=== PATIENT | female | born 1990 | race Caucasian/White ===

== ENCOUNTER 2017-01-03 11:49 | Emergency (ER) | payer OTHER ==
[2017-01-03 13:45] LABS: Hematocrit 33 % (35-47); Mean Corpuscular HGB Conc 34 g/dl (31-36); Mean Corpuscular Hemoglobin 32 pg (27-31); Mean Corpuscular Volume 94 fL (80-97); Mean Platelet Volume 8 um3 (7.4-10.4); Red Blood Count 3.46 10^6/ul (4.0-5.4); Red Cell Distribution Width 12 % (10.5-15); White Blood Count 5.1 10^3/ul (3.5-10.8)
[2017-01-03 13:47] LABS: Urine Bilirubin Negative (Negative); Urine Glucose Negative (Negative); Urine Nitrite Negative (Negative)
[2017-01-03 13:59] LABS: Benzodiazepine Urine Screen None Detected (None Detect)
[2017-01-03 14:00] LABS: ALT 10 U/L (7-52); AST 15 U/L (13-39); Albumin 3.7 g/dL (3.2-5.2); Alkaline Phosphatase 57 U/L (34-104); Anion Gap 4 mmol/L (2-11); BUN/Creatinine Ratio 13.4 (8-20); Blood Urea Nitrogen 9 mg/dL (6-24); CO2 Carbon Dioxide 31 mmol/L (22-32); Calcium 9.3 mg/dL (8.6-10.3); Chloride 102 mmol/L (101-111); EGFR African American 136.8 (>60); EGFR Non-African American 106.4 (>60); Globulin 2.5 g/dL (2-4); Glucose 90 mg/dL (70-100); Magnesium 1.7 mg/dL (1.9-2.7); Potassium 3.7 mmol/L (3.5-5.0); Sodium 137 mmol/L (133-145); Total Protein 6.2 g/dL (6.4-8.9)
[2017-01-03 14:21] LABS: Alcohol < 10 mg/dL (<10)
[2017-01-03] MEDS ORDERED: Ibuprofen TAB* 800 MG PO ONE (14:31)
[2017-01-03] MEDS ORDERED: OXcarbazepine TAB(*) 300 MG PO ONE (17:21)
[2017-01-03 18:55] VITALS: BP 101/62
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
--- NOTE | 2017-01-04 12:07 | EEG ---
ELECTROENCEPHALOGRAPHY: DATE OF STUDY: 01/03/17 REFERRING PROVIDER: Dr. Lei Dang. LOCATION: She is in the emergency room. CLINICAL HISTORY: Episodes of possible seizures starting just today or this week including staring spells. The patient apparently is having staring spells in the emergency room. MEDICATIONS: Unknown. EEG DESCRIPTION: This 16-channel EEG is remarkable for background activity at the onset of the tracing consisting of a reasonably well-formed alpha rhythm in the posterior derivations at 8-1/2 to 9 cycles per second, which is symmetric. Moderate to high voltage beta rhythms are seen bifrontally. Muscle and movement artifacts are seen occasionally. Activation procedures are not attempted. The patient blinks and rubs her face at times, but does not have any episodes of unresponsiveness reported by the technician helper instrument. The patient does not sleep. Activation procedures are not attempted. There are no focal, lateralized, or epileptiform abnormalities. INTERPRETATION: Normal awake EEG. [id number]/[facility] #: [id number] ALEXANDER
--- NOTE | 2017-01-10 20:51 | ED ---
Marielos, DoctorEstelle, scribed for Lei Dang MD on 01/03/17 at 1323 . Neurological HPI - HPI Summary HPI Summary: 26 year old female arrived to [facility] by ambulance after experiencing multiple seizures this morning and in the waiting room at [facility]. She has no recollection of her seizures, but was told that they were "staring spells," and she was given a C-collar by the high school professional who brought her to the ED. She reportedly fell and hit her head during one seizure, and feels generally sore; however, she denies any LOC. She regularly experiences seizures 1x month, and takes Paxil and Trileptal. She has a PMHx of a chronic back problem that is no different than baseline today. She does not currently have a regular PCP, and is living at [facility]. - History of Current Complaint Chief Complaint: EDSeizure Stated Complaint: SEIZURE Time Seen by Provider: 01/03/17 12:18 Hx Obtained From: Patient Onset/Duration: Gradual Onset, Started minutes ago Timing: Intermittent Episodes Lasting: Onset Severity: Moderate Seizure Severity: Moderate Pain Intensity: 7 Pain Scale Used: 0-10 Numeric Syncope Context: Loss of Consciousness: No Seizure Character: Generalized - absence seizure Aggravating: Unknown Alleviating: Spontanious Resolution Associated Signs and Symptoms: Positive: Weakness - "generally sore", Seizure. Negative: Loss of Consciousness - Allergy/Home Medications Allergies/Adverse Reactions: Allergies Allergy/AdvReac Type Severity Reaction Status Date / Time Tramadol Allergy spasms Verified 01/03/17 13:34 PMH/Surg Hx/FS Hx/Imm Hx Musculoskeletal History: Reports: Hx Back Problems - chronic back problems Neurological History: Reports: Hx Seizures - Surgical History Surgery Procedure, Year, and Place: Dilation & Curettage Infectious Disease History: Yes Infectious Disease History: Denies: Traveled Outside the [place] in Last 30 Days - Family History Known Family History: Positive: Cardiac Disease, Diabetes, Other - Emphysema ( Mother) - Social History Lives: Nursing Home - currently at [facility] Review of Systems Negative: Fever Positive: Myalgia - general soreness of muscles, no specific location Neurological: Other - seizures, now resolved. no LOC. All Other Systems Reviewed And Are Negative: Yes Physical Exam Triage Information Reviewed: Yes Vital Signs On Initial Exam: Initial Vitals Temp Pulse Resp BP Pulse Ox 98.8 F 65 18 104/53 99 01/03/17 11:51 01/03/17 11:51 01/03/17 11:51 01/03/17 11:51 01/03/17 11:51 Vital Signs Reviewed: Yes Appearance: Positive: Well-Appearing, No Pain Distress Skin: Positive: Warm, Skin Color Reflects Adequate Perfusion, Dry Head/Face: Positive: Normal Head/Face Inspection Eyes: Positive: Normal ENT: Positive: Normal ENT inspection Neck: Positive: Supple, Nontender Respiratory/Lung Sounds: Positive: Clear to Auscultation, Breath Sounds Present Cardiovascular: Positive: RRR Abdomen Description: Positive: Nontender, Soft Bowel Sounds: Positive: Present Musculoskeletal: Positive: Normal Neurological: Positive: Normal Psychiatric: Positive: Normal, Affect/Mood Appropriate Diagnostics - Vital Signs Vital Signs Temp Pulse Resp BP Pulse Ox 01/03/17 12:00 65 14 98 01/03/17 11:59 71 97 01/03/17 11:51 98.8 F 65 18 104/53 99 - Laboratory Lab Results: Lab Results 01/03/17 Range/Units 12:18 POC Glucose (mg/dL) 105 (74-106) mg/dL Result Diagrams: 01/03/17 13:30 01/03/17 13:30 Lab Statement: Any lab studies that have been ordered have been reviewed, and results considered in the medical decision making process. - EKG 13:52 Cardiac Rate: Bradycardia - 58 bpm EKG Rhythm: Sinus Bradycardia Course/Dx - Course Course Of Treatment: 14:10 - Discussed patient with Dr. Ochoa; he will re- evaulate patient after her EEG - Diagnoses Provider Diagnoses: Seizures Discharge - Discharge Plan Condition: Stable Disposition: OTHER Discharge Disposition Comment: Pending consult with Dr. Ochoa Prescriptions: OXcarbazepine TAB(*) [Trileptal TAB(*)] 600 mg PO BID #30 tab Patient Education Materials: Recurrent Seizures in Adults (ED) Referrals: Julio Ochoa MD [Medical Doctor] - 2 Days Additional Instructions: Please follow-up with Dr. Ochoa's office. The documentation as recorded by the Doctor flores Tahera accurately reflects the service I personally performed and the decisions made by , Lei Dang MD.
--- NOTE | 2017-01-18 20:55 | ED ---
Anisha Arceo Matthew, scribed for Williams Joe MD on 01/03/17 at 1743 . Progress - Progress Note Progress Note: This patient was sign out by Dr. Dang. The patient has been having seizures. The patient was awaiting consult from Dr. Ochoa. Dr. Ochoa saw that patient. He did an EEG and read the EEG. He recommends the patient be discharged home on Trileptal 600mg BID and follow-p with his office. She is A& Ox3 and hemodynamically stable. She is ambulatory and has no other complaints. Course/Dx - Diagnoses Provider Diagnoses: Seizures The documentation as recorded by the Anisha flores Matthew accurately reflects the service I personally performed and the decisions made by Heath denny Walter, MD.
== END 2017-01-03 19:07 ==
LOC: ED 11:49
DX: R56.9 Unspecified convulsions (principal)
CPT/HCPCS: 36415; 80053; 80307; 80320; 81003; 83605; 83735; 84702; 85025; 85610; 95816; 99283; A9270-GY; G0480

== ENCOUNTER 2017-01-04 21:06 | Emergency (ER) | payer OTHER ==
[2017-01-04] MEDS ORDERED: LORazepam INJ* 2 MG/ML 1 ML VIAL IV PUSH ONE (21:09)
--- NOTE | 2017-01-04 21:39 | ED ---
Adriano Arceo SooYoung, scribed for Shade Hayes MD on 01/04/17 at 2110 . Neurological HPI - HPI Summary HPI Summary: LEVEL 5 CAVEAT: HPI LIMITED DUE TO PT CONDITION, UNRELIABLE NARRATOR A 26 y/o F SOFIYA presents to ED for sz onset 1930. Pt had two more sz with EMS on way to ED. According to EMS, pt was seen yesterday in ED for sz by Dr. Dang. Pt is in a rehab facility. They told EMS that pt has taken her medications today. - History of Current Complaint Stated Complaint: SEIZURES Hx Obtained From: EMS - Allergy/Home Medications Allergies/Adverse Reactions: Allergies Allergy/AdvReac Type Severity Reaction Status Date / Time Tramadol Allergy spasms Verified 01/03/17 13:34 PMH/Surg Hx/FS Hx/Imm Hx Previously Healthy: No - LEVEL 5 CAVEAT: PMHx/SHx/FHx LIMITED DUE TO PT CONDITION, UNRELIABLE NARRAT Neurological History: Reports: Hx Seizures - Social History Alcohol Use: does not drink now but has ETOH history Substance Use Type: Reports: Other Substance Use Comment - Amount & Last Used: pt currently in rehab Smoking Status (MU): Former Smoker Review of Systems - ROS Summary Review of Systems Summary: LEVEL 5 CAVEAT: ROS LIMITED DUE TO PT CONDITION, UNRELIABLE NARRATOR All Other Systems Reviewed And Are Negative: Yes Physical Exam Triage Information Reviewed: Yes Vital Signs On Initial Exam: Initial Vitals Temp Pulse Resp BP Pulse Ox 98.5 F 80 16 100/56 96 01/04/17 21:07 01/04/17 21:07 01/04/17 21:07 01/04/17 21:07 01/04/17 21:07 Vital Signs Reviewed: Yes Appearance: Positive: Well-Appearing, No Pain Distress Skin: Positive: Warm Head/Face: Positive: Normal Head/Face Inspection Eyes: Positive: ARCHANA ENT: Positive: Hearing grossly normal Neck: Positive: Supple Respiratory/Lung Sounds: Positive: Breath Sounds Present Cardiovascular: Positive: RRR Abdomen Description: Positive: Nontender, Soft Bowel Sounds: Positive: Present Neurological: Positive: Alert, Oriented to Person Place, Time Psychiatric: Positive: Affect/Mood Appropriate Diagnostics - Vital Signs Vital Signs Temp Pulse Resp BP Pulse Ox 01/04/17 21:11 16 01/04/17 21:07 98.5 F 80 16 100/56 96 - Laboratory Result Diagrams: 01/04/17 22:00 01/04/17 22:00 Lab Statement: Any lab studies that have been ordered have been reviewed, and results considered in the medical decision making process. Re-Evaluation - Re-Evaluation First Eval Change: Improved - no further sz, seen in ed 1 day ago for same with nl eeg Course/Dx - Diagnoses Provider Diagnoses: Seizure Discharge - Discharge Plan Condition: Stable Disposition: HOME Patient Education Materials: Recurrent Seizures in Adults (ED) Referrals: No Primary Care Phys,NOPCP [Primary Care Provider] - Additional Instructions: Follow up with your doctor as needed. Follow your previous seizure precautions. Return to the ED with new or worsening symptoms. The documentation as recorded by the Adriano flores SooYoung accurately reflects the service I personally performed and the decisions made by me, Shade Hayes MD.
[2017-01-04] MEDS ORDERED: NS 0.9% 1000 ML* 1,000 ML IV ONE (22:12)
[2017-01-04 22:21] LABS: Hematocrit 31 % (35-47); Hemoglobin 10.4 g/dl (12.0-16.0); Mean Corpuscular HGB Conc 33 g/dl (31-36); Mean Corpuscular Hemoglobin 32 pg (27-31); Mean Corpuscular Volume 95 fL (80-97); Mean Platelet Volume 8 um3 (7.4-10.4); Red Blood Count 3.29 10^6/ul (4.0-5.4); Red Cell Distribution Width 12 % (10.5-15); White Blood Count 4.6 10^3/ul (3.5-10.8)
[2017-01-04 22:36] LABS: ALT 9 U/L (7-52); AST 15 U/L (13-39); Albumin 3.6 g/dL (3.2-5.2); Alkaline Phosphatase 51 U/L (34-104); Anion Gap 4 mmol/L (2-11); BUN/Creatinine Ratio 21.8 (8-20); Blood Urea Nitrogen 17 mg/dL (6-24); CO2 Carbon Dioxide 30 mmol/L (22-32); Calcium 8.7 mg/dL (8.6-10.3); Chloride 101 mmol/L (101-111); EGFR African American 114.8 (>60); EGFR Non-African American 89.3 (>60); Globulin 2.4 g/dL (2-4); Glucose 92 mg/dL (70-100); Magnesium 1.6 mg/dL (1.9-2.7); Potassium 3.7 mmol/L (3.5-5.0); Sodium 135 mmol/L (133-145)
[2017-01-04 22:48] LABS: Alcohol < 10 mg/dL (<10)
[2017-01-04 23:27] VITALS: BP 93/59
== END 2017-01-04 23:28 | disposition home or self-care (01) ==
LOC: ED 21:06
DX: R56.9 Unspecified convulsions (principal)
CPT/HCPCS: 36415; 80053; 80320; 83605; 83735; 84146; 85025; 85610; 96374; 99283; G0480